=== PATIENT | female | born 1985 ===

== ENCOUNTER → 2017-03-19 | Outpatient (CLI) | payer OTHER ==
[~2017-03-19] MED LIST: CIPRO500 MG PO; PRED MILD5 ML OP; VALTREX1000 MG PO
== END | disposition home or self-care (01) ==
LOC: LAB 08:23
DX: K52.89 Other specified noninfective gastroenteritis and colitis (principal)

== ENCOUNTER 2017-03-25 07:58 | Outpatient (CLI) | payer OTHER | END 2017-03-25 08:05 | disposition home or self-care (01) | LOC: LAB 07:58 | DX: K52.89 Other specified noninfective gastroenteritis and colitis (principal) ==

== ENCOUNTER 2017-07-23 09:29 | Outpatient (CLI) | payer OTHER | END 2017-07-23 09:39 | disposition home or self-care (01) | LOC: LAB 09:29 | DX: N20.0 Calculus of kidney (principal) ==

== ENCOUNTER 2017-10-15 08:34 | Outpatient (CLI) | payer OTHER | END 2017-10-15 08:44 | disposition home or self-care (01) | LOC: LAB 08:34 | DX: N39.0 Urinary tract infection, site not specified (principal); E11.9 Type 2 diabetes mellitus without complications; E03.8 Other specified hypothyroidism; N21.8 Other lower urinary tract calculus ==

== ENCOUNTER → 2017-11-19 08:26 | Outpatient (CLI) | payer OTHER | END | disposition home or self-care (01) | LOC: LAB 08:26 | DX: N39.0 Urinary tract infection, site not specified (principal); N20.0 Calculus of kidney ==

== ENCOUNTER 2018-07-15 09:19 | Outpatient (CLI) | payer OTHER | END 2018-07-15 09:24 | disposition home or self-care (01) | LOC: RAD 09:19 | DX: N20.0 Calculus of kidney (principal) ==

== ENCOUNTER 2018-07-15 09:32 | Outpatient (CLI) | payer OTHER | END 2018-07-15 09:42 | disposition home or self-care (01) | LOC: LAB 09:32 | DX: N39.0 Urinary tract infection, site not specified (principal) ==

== ENCOUNTER 2019-01-16 08:16 | Outpatient (CLI) | payer OTHER | END 2019-01-16 08:22 | disposition home or self-care (01) | LOC: LAB 08:16 | DX: E03.8 Other specified hypothyroidism (principal); D50.8 Other iron deficiency anemias; E78.00 Pure hypercholesterolemia, unspecified; E11.9 Type 2 diabetes mellitus without complications; N39.0 Urinary tract infection, site not specified; Z11.3 Encounter for screening for infections with a predominantly sexual mode of transmission; Z11.4 Encounter for screening for human immunodeficiency virus [HIV]; A63.8 Other specified predominantly sexually transmitted diseases ==

== ENCOUNTER 2019-02-10 08:22 | Outpatient (CLI) | payer OTHER | END 2019-02-10 08:28 | disposition home or self-care (01) | LOC: LAB 08:22 | DX: Z00.8 Encounter for other general examination (principal) ==

== ENCOUNTER 2019-07-29 08:16 | Outpatient (CLI) | payer OTHER | END 2019-07-29 08:28 | disposition home or self-care (01) | LOC: RAD 08:16 | PROVIDERS: ATTEND Preventive Medicine Occupational Medicine | DX: N20.0 Calculus of kidney (principal) ==

== ENCOUNTER 2020-05-18 14:16 | Outpatient (CLI) | payer OTHER | END 2020-05-18 14:32 | disposition home or self-care (01) | LOC: MRI 14:16 | PROVIDERS: ATTEND Preventive Medicine Occupational Medicine | DX: M25.561 Pain in right knee (principal) | CPT/HCPCS: 73718 ==

== ENCOUNTER 2020-10-07 08:39 | Outpatient (CLI) | payer OTHER | END 2020-10-07 08:40 | disposition home or self-care (01) | LOC: LAB 08:39 | PROVIDERS: ATTEND Obstetrics & Gynecology | DX: Z34.02 Encounter for supervision of normal first pregnancy, second trimester (principal) ==

== ENCOUNTER 2020-11-04 14:39 | Outpatient (CLI) | payer OTHER | END 2020-11-04 15:56 | disposition home or self-care (01) | LOC: PRENATAL 14:39 | PROVIDERS: ATTEND Obstetrics & Gynecology Maternal & Fetal Medicine | DX: O35.0XX1 Maternal care for (suspected) central nervous system malformation in fetus, fetus 1 (principal); O35.3XX1 Maternal care for (suspected) damage to fetus from viral disease in mother, fetus 1; O98.512 Other viral diseases complicating pregnancy, second trimester; Z36.89 Encounter for other specified antenatal screening; Z3A.20 20 weeks gestation of pregnancy ==